=== PATIENT | male | born 1935 | race Caucasian/White ===

== ENCOUNTER 2016-10-03 23:15 | Emergency (ER) | payer OTHER ==
[~2016-10-03] VITALS: Ht 177.8 cm; Wt 56.7 kg
[~2016-10-03 23:15] MED LIST: CENTRUM SILVER1 TAB PO; CLOPIDOGREL75 MG PO; IMODIUM A-D2 M1 PO; MIRTAZAPINE15 M3 PO; NEURONTIN300 MG PO; PREDNISONE 20MG20 MG PO; SIMVASTATIN20 MG PO; TOPROL XL 25MG25 MG PO; ULTRAM(MONOGRAP50 MG PO; VITAMIN B121000 MC2 PO; ZOFRAN4 M1 PO
--- NOTE | 2016-10-03 23:56 | ED GENERAL ADULT ---
History of Present Illness General Chief Complaint: Dizziness Stated Complaint: PER "HE DOESNT FEEL GOOD",DIZZY Source: patient, family, old records Exam Limitations: dementia Vital Signs & Intake/Output Vital Signs & Intake/Output Vital Signs Date Time Temp Pulse Resp B/P Pulse O2 O2 Flow FiO2 Ox Delivery Rate 10/03 2344 64 18 120/59 97 Room Air ED Intake and Output 10/04 0000 10/03 1200 Intake Total Output Total Balance Patient 125 lb Weight Allergies Coded Allergies: meperidine (From DEMEROL) (NAUSEA 06/07/16) oxycodone (NAUSEA 06/07/16) Reconcile Medications CLOPIDOGREL BISULFATE (Clopidogrel) 75 MG TABLET 1 TAB PO DAILY BLOOD THINNER (Reported) Cyanocobalamin (Vitamin B12) 1,000 MCG TAB 1 TAB PO DAILY SUPPLEMENT ( Reported) Gabapentin (Neurontin) 300 MG CAP 0 PO SEE RATE trigeminal neuralgia 1 cap at bedtime for 3 days then increase to 2 times a day until better Loperamide HCl (Imodium A-D) 2 MG TABLET 1 TAB PO AD PRN DIARRHEA 1 TAB AFTER EACH BM, MAX 4/24 HR Metoprolol Succ XL (Toprol XL 25MG) 50 MG TAB.ER.24H 0.5 TAB PO DAILY HEART ( Reported) Mirtazapine 15 MG TAB.RAPDIS 1 TAB PO QPM DEPRESSION (Reported) Multivitamin and Fqaclhet420 (Centrum Silver) 1 TAB TAB 1 TAB PO DAILY SUPPLEMENT (Reported) Simvastatin (Zocor) 20 MG TAB 0.5 TAB PO QPM CHOLESTEROL (Reported) Tramadol HCl (Ultram) 50 MG TAB 1 TAB PO Q6 PRN severe pain Triage Note: PT TO ED WITH . PT STATES PT WAS ACTING "ANXIOUS AND FIDGETY" AND WANTED TO COME TO THE HOSPITAL. PT HAS BEEN TAKING NEURONTIN FOR CHEEK PAIN SINCE AUGUST. PT WAS HOLDING ONTO CHEEK AND STATED "MAYBE I SHOULD GO TO THE HOSPITAL". PT OFFERING NO COMPLAINTS AT THIS TIME. PER PT NOTHING NEW HAS HAPPENED, NO CHANGE IN MEDICATIONS OR FOOD. PT DENIES DIZZINESS AND PAIN. Triage Nurses Notes Reviewed? yes HPI: Patient took his medications this evening including his Neurontin which he takes for her trigeminal neurology. Patient then went to bed but then was awoken by pain to his left cheek. Patient has new onset dementia. Patient wanted to come to the emergency room for evaluation. His brought him in just to make sure everything was okay. Upon presentation to the emergency room the patient denies any pain. Patient cannot describe the pain but his states that he had described as similar to his prior trigeminal neurology or pain. Past History Travel History Traveled to [place] past 21 day No Medical History Any Pertinent Medical History? see below for history Neurological: CVA, dementia, TRIGEMINAL NEUROLOGY EENT: NONE Cardiovascular: hypertension, hyperlipidemia Respiratory: NONE Gastrointestinal: constipation Hepatic: NONE Renal: UROSTOMY Musculoskeletal: NONE Psychiatric: depression Endocrine: NONE Blood Disorders: NONE Cancer(s): BLADDER CA FLORAL DECORATOR/Reproductive: NONE Other Medical Hx: Trigeminal neuralgia Pneumonia Vaccine: 03/10/20 Influenza Vaccine: 03/10/20 Surgical History Surgical History: CHOLY, KIDNEY STENT, CABG X 3 Psychosocial History Who do you live with Spouse Services at Home Nursing What is your primary language Occitan Tobacco Use: Never used ETOH Use: denies use Illicit Drug Use: denies illicit drug use Family History Hx Contributory? No Review of Systems Review of Systems Constitutional: Reports: no symptoms. EENTM: Reports: see HPI. Respiratory: Reports: no symptoms. Cardiovascular: Reports: no symptoms. GI: Reports: no symptoms. Genitourinary: Reports: no symptoms. Musculoskeletal: Reports: no symptoms. Skin: Reports: no symptoms. Neurological/Psychological: Reports: see HPI. Hematologic/Endocrine: Reports: no symptoms. Immunologic/Allergic: Reports: no symptoms. All Other Systems: Reviewed and Negative Physical Exam Physical Exam General Appearance: well developed/nourished, alert, awake, mild distress Head: atraumatic, normal appearance Eyes: Bilateral: PERRL, EOMI. Ears, Nose, Throat: normal pharynx, normal ENT inspection, hearing grossly normal Neck: normal inspection, supple, full range of motion Respiratory: normal breath sounds, chest non-tender, no respiratory distress, lungs clear Cardiovascular: regular rate/rhythm, normal peripheral pulses Gastrointestinal: normal bowel sounds, soft, non-tender, no organomegaly Back: normal inspection, normal range of motion Extremities: normal inspection, normal capillary refill, normal range of motion, no edema Neurologic/Psych: no motor/sensory deficits, awake, alert, oriented x 3, normal gait, normal mood/affect Skin: intact, normal color, warm/dry Lymphatic: no anterior cervical indu Core Measures ACS in differential dx? Yes ASA ordered for poss ACS? No-ACS ruled out CVA/TIA Diagnosis: No Severe Sepsis Present: No Septic Shock Present: No Progress Differential Diagnoses I considered the following diagnoses in my evaluation of the patient: [ Trigeminal neurology, electrolyte abnormality, OR] Plan of Care: Orders Procedure Date/time Status Telemetry/Industrial Relations Manager 10/03 2345 Active TROPONIN LEVEL 10/03 2345 Complete COMPREHENSIVE METABOLIC PANEL 10/03 2345 Complete CBC WITHOUT DIFFERENTIAL 10/03 2345 Complete EKG 10/03 2328 Active Laboratory Tests 10/04/16 0008: Anion Gap 6, Estimated GFR 53 L, BUN/Creatinine Ratio 27.7 H, Glucose 117 H, Calcium 9.5, Total Bilirubin 0.7, AST 20, ALT 34, Alkaline Phosphatase 118, Troponin I 0.02, Total Protein 5.8 L, Albumin 3.5, Globulin 2.3, Albumin/ Globulin Ratio 1.5, CBC w Diff NO MAN DIFF REQ, RBC 4.50 L, MCV 97.7 H, MCH 33.1 H, RDW 14.0, MPV 8.0, Gran % 66.7, Lymphocytes % 17.6 L, Monocytes % 12.4 H, Eosinophils % 3.0, Basophils % 0.3, Absolute Granulocytes 4.5, Absolute Lymphocytes 1.2, Absolute Monocytes 0.8 H, Absolute Eosinophils 0.2, Absolute Basophils 0, PUBS MCHC 33.9 Diagnostic Imaging: Viewed by Me: Radiology Read. Discussed w/RAD: Radiology Read. CXR Impression: PATIENT: MARIA GUADALUPE JERNIGAN PRESENT AGE: 81 PATIENT ACCOUNT NO: [id number] : 33 LOCATION: [facility] ORDERING PHYSICIAN: DONTE WEBSTER MD SERVICE DATE: 10/03/16 EXAM TYPE: RAD - XRY-PORTABLE CHEST XRAY EXAMINATION: XR PORTABLE CHEST CLINICAL INFORMATION: Chest pain. COMPARISON: CT scan of the abdomen and pelvis 06/07/2016 and chest radiograph 06/07/2015. TECHNIQUE: Portable AP view of the chest was obtained. FINDINGS: There are chronic postoperative changes of a median sternotomy. There is no focal consolidative disease, pleural effusion, or pneumothorax. The cardiac silhouette and upper mediastinal contours are normal. No acute osseous finding. IMPRESSION: Unremarkable chest radiograph. No consolidative disease or effusion. DICTATED BY: GRANT CORBETT MD DATE/TIME DICTATED:10/04/1643 ROLL SHEETING CUTTER:JEFFY DATE/TIME TRANSCRIBED:10/04/1643 CONFIDENTIAL, DO NOT COPY WITHOUT APPROPRIATE AUTHORIZATION. <Electronically signed in Other Vendor System> SIGNED BY: GRANT CORBETT MD 10/04/16 0050 Initial ED EKG: NSR, nonspecific ST T wave chg Prior EKG: unchanged Departure Departure Disposition: HOME OR SELF CARE Condition: Stable Clinical Impression Primary Impression: Trigeminal neuralgia Referrals: JOSEPH FERNÁNDEZ,SOFI VÁSQUEZ (PCP/Family) Additional Instructions: Return for any concerns. Departure Forms: Customer Survey General Discharge Information Critical Care Note Critical Care Note Critical Care Time: non-applicable
[2016-10-04 00:16] LABS: ABSOLUTE BASOPHIL COUNT 0 /CUMM (0.0-0.2); ABSOLUTE EOSINOPHIL COUNT 0.2 /CUMM (0.0-0.7); ABSOLUTE GRANULOCYTE CT 4.5 /CUMM (1.4-6.5); ABSOLUTE LYMPH COUNT 1.2 /CUMM (1.2-3.4); ABSOLUTE MONOCYTE COUNT 0.8 /CUMM (0.10-0.60); BASOPHIL % 0.3 % (0.0-2.0); GRANULOCYTE % 66.7 % (42.2-75.2); MEAN CORPUSCULAR HGB 33.1 PG (27.0-31.0); MEAN CORPUSCULAR HGB CONC 33.9 G/DL (33.0-37.0); MEAN CORPUSCULAR VOLUME 97.7 FL (80.0-94.0); PLATELET COUNT 152 /CUMM (130-400); WHITE BLOOD CELL COUNT 6.7 /CUMM (4.8-10.8)
--- NOTE | 2016-10-04 00:50 | RADIOLOGY REPORT ---
EXAMINATION: XR PORTABLE CHEST CLINICAL INFORMATION: Chest pain. COMPARISON: CT scan of the abdomen and pelvis 06/07/2016 and chest radiograph 06/07/2015. TECHNIQUE: Portable AP view of the chest was obtained. FINDINGS: There are chronic postoperative changes of a median sternotomy. There is no focal consolidative disease, pleural effusion, or pneumothorax. The cardiac silhouette and upper mediastinal contours are normal. No acute osseous finding. IMPRESSION: Unremarkable chest radiograph. No consolidative disease or effusion.
[2016-10-04 01:50] VITALS: BP 124/65
== END 2016-10-04 01:51 ==
LOC: ERH 23:15
PROVIDERS: Emergency Medicine
DX: G50.0 Trigeminal neuralgia (principal)
CPT/HCPCS: 93005; 93010